=== PATIENT | male | born 1960 | race Caucasian/White ===

== ENCOUNTER → 2024-03-02 10:37 | Outpatient (REF) | payer OTHER, SELFPAY | LOC: HWRAD 10:37 | PROVIDERS: FAMILY PHYSICIAN Family Medicine | DX: C43.4 Malignant melanoma of scalp and neck (principal) | CPT/HCPCS: 76536 ==

== ENCOUNTER → 2024-03-21 09:11 | Outpatient (REF) | payer OTHER, SELFPAY | LOC: PET 09:11 | DX: C43.4 Malignant melanoma of scalp and neck (principal) | CPT/HCPCS: 78816; A9552 ==

== ENCOUNTER → 2024-05-31 07:29 | Outpatient (REF) | payer OTHER, SELFPAY | LOC: RAD 07:29 | PROVIDERS: ATTENDING PHYSICIAN Internal Medicine Medical Oncology; FAMILY PHYSICIAN Family Medicine | DX: C43.4 Malignant melanoma of scalp and neck (principal) | CPT/HCPCS: 70491; 71260; 74177; Q9967 ==

== ENCOUNTER → 2024-08-15 07:05 | Outpatient (REF) | payer OTHER, SELFPAY | LOC: RAD 07:05 | PROVIDERS: ATTENDING PHYSICIAN Family Medicine | DX: R74.8 Abnormal levels of other serum enzymes (principal) | CPT/HCPCS: 76770 ==

== ENCOUNTER → 2024-08-23 07:31 | Outpatient (REF) | payer OTHER, SELFPAY | LOC: RAD 07:31 | PROVIDERS: ATTENDING PHYSICIAN Physician Assistant Medical; FAMILY PHYSICIAN Family Medicine | DX: C43.4 Malignant melanoma of scalp and neck (principal) | CPT/HCPCS: 70491; 71260; 74177; Q9967 ==

== ENCOUNTER → 2024-09-11 06:47 | Outpatient (REF) | payer OTHER, SELFPAY | LOC: HWRAD 06:47 | PROVIDERS: ATTENDING PHYSICIAN Student in an Organized Health Care Education/Training Program; FAMILY PHYSICIAN Family Medicine | DX: C73 Malignant neoplasm of thyroid gland (principal) | CPT/HCPCS: 76536 ==

== ENCOUNTER → 2024-11-06 06:37 | Outpatient (REF) | payer OTHER, SELFPAY | LOC: RAD 06:37 | PROVIDERS: ATTENDING PHYSICIAN Physician Assistant Medical; FAMILY PHYSICIAN Family Medicine | DX: C43.4 Malignant melanoma of scalp and neck (principal) | CPT/HCPCS: 70491; 71260; 74177; Q9967 ==

== ENCOUNTER → 2024-12-26 06:58 | Outpatient (REF) | payer OTHER, SELFPAY | LOC: RAD 06:58 | PROVIDERS: ATTENDING PHYSICIAN Internal Medicine Nephrology; FAMILY PHYSICIAN Family Medicine | DX: C73 Malignant neoplasm of thyroid gland (principal) | CPT/HCPCS: 76536 ==

== ENCOUNTER 2025-02-13 08:22 | Outpatient (RCR) | payer OTHER, SELFPAY ==
[2025-02-13 09:08] VITALS: BP 109/77
[2025-02-13] MEDS: SODIUM BICARBONATE 1150 MEQ IV (09:09)
== END 2025-03-13 23:59 | disposition home or self-care (01) ==
LOC: OID 08:22
PROVIDERS: ATTENDING PHYSICIAN Specialist; FAMILY PHYSICIAN Family Medicine
DX: N17.9 Acute kidney failure, unspecified (principal); C43.9 Malignant melanoma of skin, unspecified; Z85.850 Personal history of malignant neoplasm of thyroid
CPT/HCPCS: 70491; 71260; 74177; 96365; 96366; Q9967

== ENCOUNTER → 2025-03-01 07:21 | Outpatient (REF) | payer OTHER, SELFPAY | LOC: HWRAD 07:21 | PROVIDERS: ATTENDING PHYSICIAN Student in an Organized Health Care Education/Training Program; FAMILY PHYSICIAN Family Medicine | DX: C73 Malignant neoplasm of thyroid gland (principal) | CPT/HCPCS: 76536 ==